=== PATIENT | female | born 1955 | race Caucasian/White ===

== ENCOUNTER → 2017-01-03 | Outpatient (CLI) | payer BC ==
[~2017-01-03] MED LIST: ALBU1AER9 INH; ALEN70TA2 PO; CHOL100027 PO; DLN/100 PO; FLUT0.15 NAE; LEVE500T13 PO
--- NOTE | 2017-01-03 09:19 | DIAGNOSTIC IMAGING REPORT ---
LEFT FOOT 3 VIEWS HISTORY: FOOT SPRAIN LT COMPARISON: None. FINDINGS: There is no fracture or dislocation. Soft tissues are unremarkable. The Lisfranc joint is intact. IMPRESSION: No fracture or dislocation within the left foot. Electronically signed by: Jan Bruce M.D. 01/03/2017 9:17 AM Dictated Date/Time: 01/03/2017 9:14 AM
== END | disposition home or self-care (01) ==
LOC: C.LABPVFM 08:59
PROVIDERS: ATTEND Family Medicine
DX: S93.609A Unspecified sprain of unspecified foot, initial encounter (principal); X58.XXXA Exposure to other specified factors, initial encounter